=== PATIENT | female | born 1970 | race Caucasian/White ===

== ENCOUNTER 2018-06-27 20:06 | Emergency (ER) | payer OTHER ==
[~2018-06-27] VITALS: Ht 162.6 cm; Wt 97.5 kg
[~2018-06-27 20:06] MED LIST: ACET325; ALPR1 PO; ASPI81CH PO; ASPI81EC; ASPI81EC PO; AZIT250 PO; CEPH500 PO; CIPR500 PO; CITA20 PO; CLON1 PO; CODACE30; CYCL10 PO; DIAZ10 PO; DULO30 PO; ESTEST.62T; ESTMED; FAMO20 PO; FLUO20 PO; FURO20 PO; GUAI120S1 PO; HYDACE10B PO; HYDACE5 PO; HYDACE5325 PO; HYDACE7.5; HYDACE7.5 PO; IBUP200; IBUP200 PO; IBUP600 PO; IBUP800 PO; KETO10 PO; LEVFLO500 PO; Lisinopril2.5 MG PO; META800 PO; MULVITA; MULVITA PO; Mobic15 MG PO; NAPR250 PO; NITR100CA PO; OMEP20ER PO; OXYACE5T PO; PHENA200 PO; POTCHL10ER PO; PREMPRO; PRILOSEC; PROM25 PO; PROZAC PO; QUET25; RXHYDACE PO; RXOXYACE PO; RXTRAM50 PO; SERT50 PO; SIMV5 PO; SULTRIDS PO; SULTRISS PO; TRAM50 PO; TRAZ50 PO; [UNRECOGNIZED DRUG - OTHER]
[2018-06-27] MEDS ORDERED: AZIT250 PO (20:18)
[2018-06-27] MEDS ORDERED: AMPDEX10CR PO (20:19)
[2018-06-27 20:55] LABS: BASOPHILS ABSOLUTE AUTO 0.02 K/mm3 (0.00-0.23); BASOPHILS PERCENT AUTO 0 % (0-2); EOSINOPHILS ABSOLUTE AUTO 0.21 K/mm3 (0.00-0.68); EOSINOPHILS PERCENT AUTO 3 % (0-6); Hematocrit 37.5 % (33.0-51.0); Hemoglobin 12.4 g/dL (11.5-16.0); IMMATURE GRAN ABSOLUTE AUTO 0.01 K/mm3 (0.00-0.10); IMMATURE GRAN PERCENT AUTO 0 % (0-1); LYMPHOCYTES ABSOLUTE AUTO 3.33 K/mm3 (0.84-5.20); LYMPHOCYTES PERCENT AUTO 51 % (21-46); MONOCYTES ABSOLUTE AUTO 0.47 K/mm3 (0.16-1.47); MONOCYTES PERCENT AUTO 7 % (4-13); Mean Corpuscular HGB 29.6 pg (26.0-34.0); Mean Corpuscular HGB Conc 33.1 g/dL (31.5-36.5); Mean Corpuscular Volume 90 fL (80-100); Mean Platelet Volume 11.2 fL (9.1-12.4); NEUTROPHILS PERCENT AUTO 38 % (41-73); Platelet Count 264 K/mm3 (150-400); RDW Standard Deviation 45.1 fL (35.1-46.3); Red Blood Cell Count 4.19 M/mm3 (3.80-5.20); White Blood Cell Count 6.54 K/mm3 (4.00-11.30)
[2018-06-27 21:28] LABS: Alanine Aminotransfer (ALT/SGP 17 U/L (12-78); Albumin, Blood 3.3 g/dL (3.4-5.0); Albumin/Globulin Ratio 0.8 (0.8-1.8); Alk Phos 93 U/L (50-136); Anion Gap 8 mmol/L (6-16); Aspartate Aminotrans (AST/SGOT 13 U/L (12-37); Bilirubin, Total 0.3 mg/dL (0.1-1.0); Blood Urea Nitrogen 11 mg/dL (8-24); Bun/Creatinine Ratio 17.7 (12.0-20.0); CO2, Blood 25 mmol/L (21-32); Calcium, Blood 9.1 mg/dL (8.5-10.1); Chloride, Blood 103 mmol/L (98-108); Creatinine, Blood 0.62 mg/dL (0.40-1.00); Globulin, Blood 4.2 g/dL (2.2-4.0); Glomerular Filtration Rate >60 (60-); Glucose, Blood 89 mg/dL (70-99); Potassium, Blood 3.6 mmol/L (3.5-5.5); Sodium, Blood 136 mmol/L (136-145); Total Protein, Blood 7.5 g/dL (6.4-8.2); Troponin I <0.015 ng/mL (0.000-0.040)
[2018-06-27] MEDS ORDERED: Prednisone20 MG PO (23:22)
== END 2018-06-27 23:50 | disposition home or self-care (01) ==
LOC: ER 20:06
PROVIDERS: Physician Assistant
DX: J20.9 Acute bronchitis, unspecified (principal); Z88.1 Allergy status to other antibiotic agents; Z88.5 Allergy status to narcotic agent; Z79.899 Other long term (current) drug therapy; Z79.52 Long term (current) use of systemic steroids; F17.210 Nicotine dependence, cigarettes, uncomplicated
CPT/HCPCS: 36415; 71046; 80053; 83880; 84484; 85025; 93005; 93010; 94640; 96374; 99284-25; J2930

== ENCOUNTER 2019-06-02 17:28 | Emergency (ER) | payer OTHER ==
[~2019-06-02] VITALS: Ht 162.6 cm; Wt 98.0 kg
[~2019-06-02 17:28] MED LIST changes: +AMPDEX10CR PO; +Prednisone20 MG PO
[2019-06-02] MEDS ORDERED: KETO10 PO (19:21)
[2019-06-02] MEDS ORDERED: Norco 5-325 Ta1 EACH PO ×2 (19:21→19:22)
== END 2019-06-02 20:00 | disposition home or self-care (01) ==
LOC: ER 17:28
DX: S46.102A Unspecified injury of muscle, fascia and tendon of long head of biceps, left arm, initial encounter (principal); F17.210 Nicotine dependence, cigarettes, uncomplicated; Z88.1 Allergy status to other antibiotic agents; Z88.5 Allergy status to narcotic agent; Z79.899 Other long term (current) drug therapy; W06.XXXA Fall from bed, initial encounter
CPT/HCPCS: 29105; 73060; 96372-59; 99283-25; J1885